=== PATIENT | male | born 1945 | race Caucasian/White ===

== ENCOUNTER 2023-07-11 06:24 | Day surgery (SDC) | payer OTHER, SELFPAY ==
[2023-07-11] VITALS (9 sets, daily range): BP systolic 104–152; BP diastolic 43–80; BMI 28.9
[2023-07-11] MEDS: NORMOSOL-R 1000 IV (06:39)
[2023-07-11] MEDS: TYLENOL 1000 MG PO (06:39)
--- NOTE | 2023-07-11 10:15 | OR.RPT ---
Operative Report
Operative Report
Primary Surgeon: Steffi
Assisting: Wesly COLEMAN
Pre-op Diagnosis: Bilateral inguinal hernias
Post-op Diagnosis: Bilateral incarcerated inguinal hernias
Procedure Performed: Robot assisted laparoscopic repair of bilateral incarcerated inguinal hernias
Anesthesia Type: GETA
Specimen / Cultures: None
Estimated Blood Loss: 10cc
Complications: None immediate
Operative Findings: Dense scarring from bladder to pelvic brim, bilateral indirect defects, large cord lipoma left, moderate cord lipoma right; B/L XL 3D max MID
Date of surgery: 07/11/23
Indications:� This 77M developed symptomatic left inguinal hernia. On imaging and exam a right inguinal hernia was identified. He asked that we repair both sides today. Robot assisted laparoscopic repair was planned.
Description of procedure:� The patient was taken to the operating room and positioned into supine position. The patient�s abdomen was prepped and draped in standard sterile fashion. A time-out was completed verifying correct patient, procedure,
site, positioning, and implants and special equipment prior to beginning this procedure.� A stab incision was made in the left upper quadrant, a Veress needle was inserted and proper position was confirmed by aspiration and saline drop test.
Following this, pneumoperitoneum was created with insufflation of carbon dioxide to 12 mmHg. Then a 8mm robotic trocar was inserted above and to the left of the umbilicus. A laparoscope was inserted and the area of initial trocar entry and Veress
needle placement were both inspected and no injuries were found. Two 8mm trocars were then placed lateral to the rectus sheath under direct visualization.
Both inguinal regions were inspected and the median umbilical ligament, medial umbilical ligament, and lateral umbilical fold were identified. Filmy omental adhesions obscuring the pelvis were carefully take down with cold keith. Attention was
turned to the right groin. The peritoneum was incised transversely above the defect and a flap was developed in the caudad direction. Adam�s ligament was identified ultimately dissected to its junction with the iliac vein and the space of Retzius
was developed bluntly. There was dense scar tissue in the area betwen the bladder and the pelvic brim, this was carefully take down layer by layer with gently blunt and sharp dissection. The dissection was continued inferiorly to the iliopubic
tract, with care taken to avoid injury to the femoral branch of the genitofemoral nerve and the lateral femoral cutaneous nerve. The cord structures were parietalized.
The direct space was inspected and a hernia was not identified. The femoral space was inspected and a defect was not identified.� The indirect space was inspected and a hernia was identified and reduced by gently traction. The canal was inspected
and a moderate cord lipoma was reduced.
Attention was turned to the left groin and the above process was repeated. An indirect inguinal hernia was identified and reduced by gently traction along with a large cord lipoma.
Extra large right and left MID 3D max mesh was passed through a trocar. The mesh was placed into the preperitoneal space and moved into position to lay flat and completely cover the direct, indirect, and femoral spaces with overlap at the midline.
The mesh was secured into place using 2-0 vicryl suture to Adam�s ligament medially and laterally. Care was taken to avoid the inferolateral triangles containing the iliac vessels and genital nerves.
The peritoneal flap was closed over the mesh and secured with 2-0 monocryl stratafix suture in similar positions of safety. Several flap rents were closed with 2-0 Monocryl stratafix and 2-0 vicryl sutures. A 14g angiocath was used to decompress the
preperitoneal space revealing good seal and all mesh in good position without folding or curling. After ensuring adequate hemostasis, the trocars were removed and the pneumoperitoneum allowed to escape. The trocar incisions were closed at the skin
level using 4-0 monocryl and topical skin adhesive. All counts were correct and the patient tolerated the procedure well and was taken to the postanesthesia care unit in stable condition.
[2023-07-11] MEDS: ROXICODONE 5 MG PO (12:07)
== END 2023-07-11 13:00 | disposition home or self-care (01) ==
LOC: SDS 06:24
PROVIDERS: ATTENDING PHYSICIAN Surgery
DX: K40.00 Bilateral inguinal hernia, with obstruction, without gangrene, not specified as recurrent (principal); K66.0 Peritoneal adhesions (postprocedural) (postinfection); D17.6 Benign lipomatous neoplasm of spermatic cord
CPT/HCPCS: 49650; C1781

== ENCOUNTER → 2024-04-30 15:42 | Outpatient (REF) | payer OTHER, SELFPAY | LOC: RAD 15:42 | PROVIDERS: ATTENDING PHYSICIAN Family Medicine; REFERRING PHYSICIAN Surgery | DX: R10.32 Left lower quadrant pain (principal); Z87.19 Personal history of other diseases of the digestive system; Z98.890 Other specified postprocedural states | CPT/HCPCS: 74177; Q9967 ==

== ENCOUNTER 2024-06-18 06:26 | Day surgery (SDC) | payer OTHER, SELFPAY | END 2024-06-18 12:52 | disposition home or self-care (01) | LOC: GI 06:26 | PROVIDERS: ATTENDING PHYSICIAN Student in an Organized Health Care Education/Training Program | DX: K44.9 Diaphragmatic hernia without obstruction or gangrene (principal); I85.01 Esophageal varices with bleeding; K22.89 Other specified disease of esophagus; K31.89 Other diseases of stomach and duodenum; R05.3 Chronic cough; R12 Heartburn; J02.9 Acute pharyngitis, unspecified; K29.50 Unspecified chronic gastritis without bleeding; K29.60 Other gastritis without bleeding | CPT/HCPCS: 43239; 88305; 88342 ==

== ENCOUNTER → 2024-07-18 09:08 | Outpatient (REF) | payer OTHER, SELFPAY | LOC: HWRAD 09:08 | PROVIDERS: ATTENDING PHYSICIAN Orthopaedic Surgery Adult Reconstructive Orthopaedic Surgery; FAMILY PHYSICIAN Family Medicine | DX: M16.12 Unilateral primary osteoarthritis, left hip (principal) | CPT/HCPCS: 73700 ==

== ENCOUNTER → 2024-12-17 08:28 | Outpatient (REF) | payer OTHER, SELFPAY | LOC: RAD 08:28 | PROVIDERS: ATTENDING PHYSICIAN Student in an Organized Health Care Education/Training Program; FAMILY PHYSICIAN Family Medicine | DX: K21.9 Gastro-esophageal reflux disease without esophagitis (principal); R19.6 Halitosis | CPT/HCPCS: 74246 ==